=== PATIENT | male | born 1960 ===

== ENCOUNTER 2017-04-17 10:24 | Day surgery (SDC) | payer OTHER ==
--- NOTE | 2017-04-17 11:27 | CP.SDSHP ---
Same Day Surgery H & P - Date & Time Date: 04/17/17 Time: 11:27 Short Stay Discharge - Short Stay Discharge Admitting Diagnosis/Reason for Visit: SCREENING Disposition: HOME/ ROUTINE
[2017-04-17 12:01] VITALS: BMI 24.8
[2017-04-17] MEDS ORDERED: Lactated Ringer's 500 ML IV SCH (13:15)
[2017-04-17] MEDS ORDERED: Propofol 10 mg/ml Inj (20 ML) ONE (13:19)
[2017-04-17 14:07] VITALS: TEMP 98.7
[2017-04-17 14:34] VITALS: O2SAT 100
[2017-04-17 14:35] VITALS: BP 101/66; PULSE 54; RESP 12
== END 2017-04-17 14:50 | disposition home or self-care (01) ==
LOC: C.ENDO 10:24
PROVIDERS: ATTEND Colon & Rectal Surgery
DX: Z12.11 Encounter for screening for malignant neoplasm of colon (principal); D12.5 Benign neoplasm of sigmoid colon; K62.1 Rectal polyp; K64.8 Other hemorrhoids
CPT/HCPCS: 45380; 45385; 88305; J2704; J7120